=== PATIENT | male | born 1965 | race Caucasian/White ===

== ENCOUNTER 2023-01-05 08:47 | Day surgery (SDC) | payer OTHER ==
[2023-01-04 14:36] LABS: Hematocrit 43.7 % (41.0-53.0); Hemoglobin 14.2 g/dL (13.5-17.5); Mean Corpuscular Hemoglobin 30.2 pg (28.0-32.0); Mean Corpuscular Hgb Conc. 32.5 g/dL (32.0-36.0); Mean Corpuscular Volume 92.9 fL (80.0-100.0); Red Cell Distribution Width 13.9 % (11.8-14.3)
[2023-01-04 14:57] LABS: Urine Bacteria NONE SEEN /hpf (None Seen); Urine Blood TRACE /uL (Negative); Urine Specific Gravity 1.024 (1.001-1.035); Urine WBC <1 /hpf (0 - 3)
[2023-01-04 15:10] LABS: INR 0.98 (0.9-1.15); Partial Thromboplastin Time 27.3 sec (24.6-33.4)
[2023-01-04 15:45] LABS: Albumin 3.6 g/dL (3.4-5.0); Calcium 9.3 mg/dL (8.5-10.1)
[2023-01-04 15:47] LABS: BUN/Creatinine Ratio 19.3 (10.0-20.0)
[2023-01-04 15:50] LABS: Bilirubin, Total 0.4 mg/dL (0.2-1.0); Total Protein 6.9 g/dL (6.4-8.2)
[2023-01-04 16:31] LABS: White Blood Cell 53.8 10^3/uL (4.4-10.8)
[2023-01-04 16:33] LABS: Basophils % (manual) 0 (0.0-2.0); Blast Cells 0; Metamyelocytes % 0; Myelocytes % 0; Promyelocytes % 0
[2023-01-04 16:59] LABS: Monocytes % (manual) 2 (0-12)
[2023-01-04 17:02] LABS: Band Neutrophils % (manual) 1; Eosinophils % (manual) 1 (0-7); Lymphocytes % (manual) 56 (10.0-50.0); Reactive Lymphocytes 32
[~2023-01-05] VITALS: Ht 188 cm; Wt 149.7 kg
[~2023-01-05 08:47] MED LIST: ASPI-543 PO; CHOL200031 PO; DULO60CA PO; FLUT0.05 NAS; GABA300C10 PO; GLUC500T48 PO; LISI2.5T47 PO; MAGN400T40 PO; METF-371 PO; SIMV10TA84 PO
[2023-01-05] MEDS ORDERED: ceFAZolin 1GM/50ML 100 ML IV ONE (09:19)
[2023-01-05] MEDS ORDERED: BUPIVACAINE HCL 0.25% P/F 10 ML VIAL ONE (09:21)
[2023-01-05] MEDS ORDERED: MIDAZOLAM HCL 2MG/2ML 2ml VIAL (1mg/ml) ONE (10:02)
[2023-01-05] MEDS ORDERED: fentaNYL CITRATE 100 MCG/2 ML VL ONE (10:02)
[2023-01-05] MEDS ORDERED: PROPOFOL 10 MG/ML 20 ML IV ONE (10:05)
[2023-01-05] MEDS ORDERED: ONDANSETRON HCL 4 MG/2 ML VIAL ONE (10:05)
[2023-01-05] MEDS ORDERED: LIDOCAINE 2% (LOCAL ANESTH.) PF 5ml SDV ONE (10:05)
[2023-01-05 11:17] VITALS: BP 129/85
== END 2023-01-05 11:44 | disposition home or self-care (01) ==
LOC: SUR 08:47
PROVIDERS: ATTEND Orthopaedic Surgery Sports Medicine
DX: M65.311 Trigger thumb, right thumb (principal); I10 Essential (primary) hypertension; E11.9 Type 2 diabetes mellitus without complications; E66.01 Morbid (severe) obesity due to excess calories; Z68.41 Body mass index [BMI] 40.0-44.9, adult; Z79.82 Long term (current) use of aspirin; Z79.899 Other long term (current) drug therapy; Z85.6 Personal history of leukemia; Z98.890 Other specified postprocedural states; Z20.822 Contact with and (suspected) exposure to COVID-19
CPT/HCPCS: 26055; 36415; 80053; 81001; 82962; 85007; 85027; 85610; 85730; J0690; J2001; J2250; J2405; J2704; J3010; J3490; U0003